=== PATIENT | female | born 1990 | race Native Hawaiian/Other Pacific Islander ===

== ENCOUNTER 2017-04-21 10:27 | Inpatient (IN) | payer OTHER ==
[~2017-04-21] VITALS: Ht 162.6 cm; Wt 84.4 kg
[2017-04-21] VITALS (7 sets, daily range): BP systolic 86–101; BP diastolic 46–52
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
--- NOTE | 2017-04-21 13:14 | ED ORDER SUMMARY ---
..... Patient: ALVA ZAIDI OrderSheet [facility]ly [facility] VisitID: [id number] [address] [place] [address] 26y, F Registration Date/Time: 04/21/2017 ORDER SHEET Weight: 84.8 kg (stated) Allergies: No Known Drug Allergy GENERAL ORDERS: Emergency Medical Technician (Continuous) (11:04/21/2017 Mayuri ALCAZAR) (11:21 SRoberts R.N.) CBC w Diff Urgent (11:04/21/2017 Mayuri ALCAZAR) (Ack 11:15 Dale ER Tech1) (13:05 SRoberts R.N.) CMP Urgent (11:04/21/2017 Mayuri ALCAZAR) (Ack 11:15 Dale SANTIAGO Tech1) (13:05 SRoberts R.N.) PT with INR Urgent (11:04/21/2017 Mayuri ALCAZAR) (Ack 11:15 Dale Li1) (13:05 SRoberts R.N.) PTT Urgent (11:04/21/2017 Mayuri ALCAZAR) (Ack 11:15 Dale SANTIAGO Tech1) (13:05 SRoberts R.N.) UA-Culture if indicated Urgent (11:04/21/2017 Mayuri ALCAZAR) (Ack 11:15 Dale Li1) (13:05 SRoberts R.N.) Urine Urgent (11:04/21/2017 Mayuri ALCAZAR) (Ack 11:15 Dale SANTIAGO Tech1) (11:21 SRoberts R.N.) Urine Drug Screen Urgent (11:04/21/2017 Mayuri ALCAZAR) (Ack 11:15 Dale SANTIAGO Tech1) (11:22 SRoberts R.N.) Serum Quantitative Urgent (11:04/21/2017 Mayuri ALCAZAR) (Ack 11:15 Dale SANTIAGO Tech1) (13:05 SRoberts R.N.) Type & Rh Urgent (11:04/21/2017 Mayuri ALCAZAR) (Ack 11:15 Dale ER Tech1) (13:05 SRoberts R.N.) Pulse oximeter (11:13 04/21/2017 Mayuri ALCAZAR) (11:21 SRoberts R.N.) EKG - ER Stat (11:13 04/21/2017 Mayuri ALCAZAR) (Ack 11:15 PWeiler ER Tech1) (11:21 SRoberts R.N.) Ethyl Alcohol Urgent (11:13 04/21/2017 Mayuri ALCAZAR) (Ack 11:15 PWeiler ER Tech1) (13:05 SRoberts R.N.) Type & Cross (severe vaaginal bleeding from injury, hypotension) (blood loss and anemia) Urgent (13:06 04/21/2017 Mayuri ALCAZAR) (Ack 13:08 PWeiler ER Tech1) (14:09 ALawrence ER Tech1) Hgb/Hct Urgent (13:07 04/21/2017 Mayuri ALCAZAR) (Ack 13:09 PWeiler ER Tech1) (14:09 ALawrence ER Tech1) Transfuse PRBCs (1 unit PRBC.) (13:25 04/21/2017 Mayuri ALCAZAR) (Hold 14:16 SRoberts R.N.) MEDICATION ORDERS: IV FLUIDS: IV NS : initial bolus 500 mL (1000 mL/hr), then 250 mL/hr for 4h (NOW); Routine (11:12 04/21/2017 Mayuri ALCAZAR) (11:24 SRoberts R.N.) Zosyn IV 3.375 gm/50mL (NOW) (13:08 04/21/2017 Mayuri ALCAZAR) (Ack 13:22 SRoberts R.N.) (13:48 SRoberts R.N.) ORDER SHEET NOTES: [Electronically signed by Krystal Del Cid R.N. (16:40 04/21/2017)] [Electronically signed by Que Dinero MD (09:37 04/22/2017)] [Electronically locked/signed by Krystal Del Cid R.N. (16:40 04/21/2017)]
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
[2017-04-22] VITALS (8 sets, daily range): BP systolic 80–109; BP diastolic 39–54
--- NOTE | 2017-04-22 09:37 | ED MAR SUMMARY ---
..... Medication Administration Record [facility] [address] [place] [address] Patient: ALVA ZAIDI Visit ID: [id number] 26y, F Weight: 84.8 kg Height/Length: 64 in BMI: 32.1 ALLERGIES: No Known Drug Allergy Start 11:24 04/21/2017 Krystal Del Cid R.N. Medication Administered: IV NS (SALINE), Dose: IV Fluids over 30 minute(s), Rate: 1000 mL/hr, Bolus: 500 mL over 30 minute(s), Dispensed: 1000 mL bag, Site: #1 right AC. Medication Ordered: IV NS : initial bolus 500 mL (1000 mL/hr), then 250 mL/hr for 4h (NOW); Routine. Start 13:33 04/21/2017 Krystal Del Cid R.N., Stop 14:07 04/21/2017 Krystal Del Cid R.N. Medication Administered: ZOSYN [IVPB] (PIPERACILLIN SOD-TAZOBACTAM SO), Dose: 3.375 gm IVPB over 30 minute(s), Rate: 100 mL/hr, Dispensed: 50 mL bag, Site: #1 right AC. Medication Ordered: Zosyn IV 3.375 gm/50mL (NOW).
--- NOTE | 2017-04-22 09:37 | ED DISCHARGE INSTRUCTIONS ---
Patient: ALVA ZAIDI General Instructions [facility] VisitID: [id number] [address] [place] [address] 26y, F Registration Date/Time: 04/21/2017 (Electronically signed by Que Dinero MD 04/22/2017 9:37)
--- NOTE | 2017-04-22 09:37 | ED MED RECONCILIATION SUMMARY ---
Patient: ALVA ZAIDI Medication Reconciliation Report [facility] VisitID: [id number] [address] [place] [address] 26y, F Registration Date/Time: 04/21/2017 Weight: 84.8 kg Height/Length: 64 in. BMI: 32.1 ALLERGIES: No Known Drug Allergy The patient's Home Medications are listed below: NONE. The source(s) of the original Home Medication information: patient The following Medications were given to the patient in the Emergency Department: IV NS IV Fluids bolus 500 mL over 30 minute(s), then 1000 mL/hr, administered: 04/21/2017 11:24:00 AM Zosyn [IVPB] IVPB bolus 0, then 3.375 gm 100 mL/hr, administered: 04/21/2017 1:33:00 PM The following Medications were prescribed to the patient: None.
--- NOTE | 2017-04-22 09:37 | ED DISCHARGE INSTRUCTIONS ---
Patient: ALVA ZAIDI General Instructions [facility] VisitID: [id number] [address] [place] [address] 26y, F Registration Date/Time: 04/21/2017 (Electronically signed by Que Dinero MD 04/22/2017 9:37)
--- NOTE | 2017-04-22 09:37 | ED MAR SUMMARY ---
..... Medication Administration Record [facility] [address] [place] [address] Patient: ALVA ZAIDI Visit ID: [id number] 26y, F Weight: 84.8 kg Height/Length: 64 in BMI: 32.1 ALLERGIES: No Known Drug Allergy Start 11:24 04/21/2017 Krystal Del Cid R.N. Medication Administered: IV NS (SALINE), Dose: IV Fluids over 30 minute(s), Rate: 1000 mL/hr, Bolus: 500 mL over 30 minute(s), Dispensed: 1000 mL bag, Site: #1 right AC. Medication Ordered: IV NS : initial bolus 500 mL (1000 mL/hr), then 250 mL/hr for 4h (NOW); Routine. Start 13:33 04/21/2017 Krystal Del Cid R.N., Stop 14:07 04/21/2017 Krystal Del Cid R.N. Medication Administered: ZOSYN [IVPB] (PIPERACILLIN SOD-TAZOBACTAM SO), Dose: 3.375 gm IVPB over 30 minute(s), Rate: 100 mL/hr, Dispensed: 50 mL bag, Site: #1 right AC. Medication Ordered: Zosyn IV 3.375 gm/50mL (NOW).
--- NOTE | 2017-04-22 09:37 | ED MED RECONCILIATION SUMMARY ---
Patient: ALVA ZAIDI Medication Reconciliation Report [facility] VisitID: [id number] [address] [place] [address] 26y, F Registration Date/Time: 04/21/2017 Weight: 84.8 kg Height/Length: 64 in. BMI: 32.1 ALLERGIES: No Known Drug Allergy The patient's Home Medications are listed below: NONE. The source(s) of the original Home Medication information: patient The following Medications were given to the patient in the Emergency Department: IV NS IV Fluids bolus 500 mL over 30 minute(s), then 1000 mL/hr, administered: 04/21/2017 11:24:00 AM Zosyn [IVPB] IVPB bolus 0, then 3.375 gm 100 mL/hr, administered: 04/21/2017 1:33:00 PM The following Medications were prescribed to the patient: None.
[2017-04-23] VITALS: BP 103/54
[2017-04-23 05:00] VITALS: BP 98/48
[2017-04-23 08:30] VITALS: BP 93/55
--- NOTE | 2017-04-23 12:32 | Provider's Discharge Care Plan ---
Problem, Goal, Plan Problem List 1. Vaginal laceration
--- NOTE | 2017-04-23 12:32 | Provider's Discharge Care Plan ---
Problem, Goal, Plan Problem List 1. Vaginal laceration
[2017-04-23] MEDS ORDERED: DOCUSATE SODIU100 MG PO (12:41)
[2017-04-23] MEDS ORDERED: FERROUS SULFATE PO (12:41)
[2017-04-23] MEDS ORDERED: OXYCODONE IR PO (12:41)
== END 2017-04-23 14:30 | disposition home or self-care (01) | DRG 746 ==
LOC: ED SRH 10:27 → SDC SRH 13:35 → TRANS SRH 13:35 → SDC SRH 18:52 → OB SRH 18:53
PROVIDERS: ADMIT Obstetrics & Gynecology
PROC: 0UQG0ZZ Repair Vagina, Open Approach (ICD-10-PCS; principal; 2017-04-21 14:30)
PROC: 0HQ9XZZ Repair Perineum Skin, External Approach (ICD-10-PCS; principal; 2017-04-21 14:30)
DX: S31.41XA Laceration without foreign body of vagina and vulva, initial encounter (principal); D62 Acute posthemorrhagic anemia; X58.XXXA Exposure to other specified factors, initial encounter; Z53.1 Procedure and treatment not carried out because of patient's decision for reasons of belief and group pressure; I95.9 Hypotension, unspecified; R42 Dizziness and giddiness; R51 Headache; Y93.89 Activity, other specified; Y92.009 Unspecified place in unspecified non-institutional (private) residence as the place of occurrence of the external cause; Y99.8 Other external cause status